=== PATIENT | male | born 1995 | race Caucasian/White ===

== ENCOUNTER 2023-01-14 21:36 | Emergency (ER) | payer SELFPAY ==
[~2023-01-14] VITALS: Ht 154.9 cm; Wt 59.0 kg
[2023-01-14 21:46] VITALS: BP 131/86; PULSE 66; RESP 15; TEMP 98; O2SAT 99
[2023-01-14] MEDS ORDERED: LIDOCAINE MPF 1% 10 ML ONE (23:12)
[2023-01-14] MEDS ORDERED: LIDOCAINE MPF 1% 15 ML ONE (23:16)
[2023-01-14] MEDS ORDERED: BACITRACIN OINT 500 UNITS/GM PKT TP ONE ×2 (23:45→23:50)
[2023-01-14] MEDS ORDERED: LIDOCAINE MPF 1% 10 MG/ML VIAL INJ ONE (23:50)
[2023-01-15 00:02] VITALS: BP 131/86; PULSE 66; RESP 15; TEMP 98; O2SAT 99
== END 2023-01-15 00:02 | disposition home or self-care (01) ==
LOC: MED 21:36
DX: S81.811A Laceration without foreign body, right lower leg, initial encounter (principal); W01.198A Fall on same level from slipping, tripping and stumbling with subsequent striking against other object, initial encounter; Y92.89 Other specified places as the place of occurrence of the external cause; Y93.89 Activity, other specified; Y99.8 Other external cause status
CPT/HCPCS: 12002; 99282; J2001